=== PATIENT | male | born 1965 | race African-American/Black ===

== ENCOUNTER 2020-10-25 09:54 | Outpatient (CLI) | payer BC | END 2020-10-25 09:55 | disposition home or self-care (01) | LOC: SCSRAD 09:54 | PROVIDERS: ATTEND Nurse Practitioner Family | DX: U07.1 COVID-19 (principal); J12.82 Pneumonia due to coronavirus disease 2019 | CPT/HCPCS: 71046 ==

== ENCOUNTER 2021-04-11 10:05 | Outpatient (CLI) | payer OTHER | END 2021-04-11 10:06 | disposition home or self-care (01) | LOC: BICRAD 10:05 | PROVIDERS: ATTEND Nurse Practitioner Family | DX: M25.561 Pain in right knee (principal); M17.11 Unilateral primary osteoarthritis, right knee ==